=== PATIENT | male | born 1965 | race Hispanic/Latino ===

== ENCOUNTER 2017-06-14 22:46 | Emergency (ER) | payer OTHER ==
[2017-06-14 23:08] VITALS: BMI 49.4
[2017-06-14 23:10] VITALS: TEMP 98
[2017-06-15 00:18] LABS: VENOUS BLOOD GAS BASE EXCESS 1.9 mmol/L (0.0-2.0); VENOUS BLOOD GAS PO2 200 mm/Hg (30-55); VENOUS BLOOD PH 7.38 (7.32-7.43)
[2017-06-15 01:49] VITALS: BP 152/82; PULSE 82; RESP 17; O2SAT 98
--- NOTE | 2017-06-15 02:00 | ED PDOC ---
Arrival/HPI - General Chief Complaint: Headache Time Seen by Provider: 06/14/17 23:01 Historian: Patient - History of Present Illness Narrative History of Present Illness (Text): 06/15/17 23:06 A 52 year old male, whose past medical history includes gout, presents to the emergency department complaining of nausea. Patient reports he lives in basement of building and installed alarm which has CO monitor. As soon as he plugged in monitor, the alarm went off. [employer] arrived and stated CO level was high. Patient had likely inhaled carbon monoxide, causing nausea symptom. Patient has no other complaints. No PMD Past Medical History - Provider Review Nursing Documentation Reviewed: Yes - Infectious Disease Hx of Infectious Diseases: None - Cardiac Hx Cardiac Disorders: No - Pulmonary Hx Respiratory Disorders: No - Endocrine/Metabolic Hx Diabetes Mellitus Type 2: Yes - Musculoskeletal/Rheumatological Hx Falls: No Hx Gout: Yes - Psychiatric Hx Depression: Yes Hx Substance Use: No - Surgical History Other/Comment: repair of rectal fistula 2013 - Anesthesia Hx Anesthesia: Yes Hx Anesthesia Reactions: No Hx Malignant Hyperthermia: No Family/Social History - Physician Review Nursing Documentation Reviewed: Yes Family/Social History: No Known Family HX Smoking Status: Never Smoked Hx Alcohol Use: No Hx Substance Use: No Allergies/Home Meds Allergies/Adverse Reactions: Allergies mushroom Adverse Reaction (Verified 08/09/16 07:57) SHORTNESS OF BREATH Home Medications: Home Meds Medication Instructions Recorded Confirmed Allopurinol [Zyloprim] 1 tab PO DAILY 06/14/17 06/14/17 LORazepam Half Tablet [Ativan] 1 tab PO PRN PRN 06/14/17 06/14/17 [place] Carbonate [[place] 900 mg PO HS 06/14/17 06/14/17 Carbonate 300MG] Naproxen [Naprosyn] 1 tab PO PRN PRN 06/14/17 06/14/17 Sertraline HCl [Zoloft] 200 mg PO DAILY 06/14/17 06/14/17 lamoTRIgine [Lamictal] 1 tab PO DAILY 06/14/17 06/14/17 Review of Systems - Physician Review All systems were reviewed & negative as marked: Yes - Review of Systems Constitutional: absent: Fevers Respiratory: absent: SOB Cardiovascular: absent: Chest Pain Gastrointestinal: Nausea (likely from inhaling CO). absent: Vomiting Neurological: absent: Headache, Dizziness Physical Exam Vital Signs Reviewed: Yes Vital Signs Temp Pulse Resp BP Pulse Ox 06/15/17 01:46 98.0 F 82 17 152/82 H 98 06/14/17 23:09 98.0 F 87 18 163/88 H 95 Temperature: Afebrile Blood Pressure: Hypertensive Pulse: Regular Respiratory Rate: Normal Appearance: Positive for: Well-Appearing Pain Distress: None Mental Status: Positive for: Alert and Oriented X 3 - Systems Exam Head: Present: Atraumatic, Normocephalic Pupils: Present: PERRL Extroacular Muscles: Present: EOMI Conjunctiva: Present: Normal Mouth: Present: Moist Mucous Membranes Neck: Present: Normal Range of Motion Respiratory/Chest: Present: Clear to Auscultation, Good Air Exchange. No: Respiratory Distress, Accessory Muscle Use Cardiovascular: Present: Regular Rate and Rhythm, Normal S1, S2. No: Murmurs Abdomen: Present: Normal Bowel Sounds. No: Tenderness, Distention, Peritoneal Signs Back: Present: Normal Inspection Upper Extremity: Present: Normal Inspection. No: Cyanosis, Edema Lower Extremity: Present: Normal Inspection. No: Edema Neurological: Present: GCS=15, CN II-XII Intact, Speech Normal Skin: Present: Warm, Dry, Normal Color. No: Rashes Psychiatric: Present: Alert, Oriented x 3, Normal Insight, Normal Concentration Medical Decision Making ED Course and Treatment: 06/15/17 23:10 Impression: 52 year old male with nausea after likely inhaling CO. Physical exam is unremarkable. Plan: -- Reassess and disposition Prior Visits: Notes and results from previous visits were reviewed. Patient was last seen in the emergency department on 08/09/2016 for atraumatic right ankle pain. Patient was admitted. Progress Notes: - Lab Interpretations Lab Results: Lab Results 06/15/17 00:08: pO2 200 H, ABG Carboxyhemoglobin 2.3 H, POC ABG HHb (Measured) 0.1, ABG Methemoglobin 0.7, VBG pH 7.38, VBG pCO2 47.0, VBG HCO3 27.8, VBG O2 Sat (Calc) 99.9 H, VBG Base Excess 1.9, VBG Hgb O2 Saturation 96.9, Hemoglobin 14.3 - Scribe Statement The provider has reviewed the documentation as recorded by the Nando Jacome Provider Scribe Attestation: All medical record entries made by the Scribe were at my direction and personally dictated by me. I have reviewed the chart and agree that the record accurately reflects my personal performance of the history, physical exam, medical decision making, and the department course for this patient. I have also personally directed, reviewed, and agree with the discharge instructions and disposition. Disposition/Present on Arrival - Present on Arrival Any Indicators Present on Arrival: No History of DVT/PE: No History of Uncontrolled Diabetes: No Urinary Catheter: No History of Decub. Ulcer: No History Surgical Site Infection Following: None - Disposition Have Diagnosis and Disposition been Completed?: Yes Diagnosis: Carbon monoxide exposure Disposition: HOME/ ROUTINE Disposition Time: 00:30 Condition: GOOD Discharge Instructions (ExitCare): Carbon Monoxide Poisoning (ED) Additional Instructions: Thank you for letting us take care of you today. The emergency medical care you received today was directed at your acute symptoms. If you were prescribed any medication, please fill it and take as directed. It may take several days for your symptoms to resolve. Return to the Emergency Department if your symptoms worsen, do not improve, or if you have any other problems. Please contact your doctor or call one of the physicians/clinics you have been referred to that are listed on the Patient Visit Information form that is included in your discharge packet. Bring any paperwork you were given at discharge with you along with any medications you are taking to your follow up visit. Our treatment cannot replace ongoing medical care by a primary care provider (PCP) outside of the emergency department. Thank you for allowing the [facility] team to be part of your care today. Follow up with your doctor in 2-3 days for re-evaluation and further management. Referrals: [facility], [Non-Staff] - Follow up with primary Forms: [employer] (Telugu)
== END 2017-06-15 01:48 | disposition home or self-care (01) ==
LOC: ED 22:46
DX: T58.8X1A Toxic effect of carbon monoxide from other source, accidental (unintentional), initial encounter (principal); Y92.098 Other place in other non-institutional residence as the place of occurrence of the external cause